=== PATIENT | male | born 1960 | race Caucasian/White ===

== ENCOUNTER 2017-05-29 11:19 | Emergency (ER) | payer SELFPAY ==
--- NOTE | 2017-05-29 12:17 | Cat Scan Report ---
Without IV contrast: History: Headache. Findings: There is aneurysm noted at the origin and proximal aspect of the right middle cerebral artery measuring 1.4 cm in length and 0.6 cm in width. There is subarachnoid and intraparenchymal hemorrhage noted in the frontal lobe with subarachnoid hemorrhage in the temporal lobes. There is also focal parenchymal hemorrhage noted adjacent to the interhemispheric fissure on the left side. No evidence of subdural hematoma. No evidence of acute ischemia. Mucosal edema of the ethmoid sinuses. Normal mastoid air cells. 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 Dr. Mayberry was informed of the findings at 12:10 PM on 05/29/17. CodePurple. Additional findings as detailed above.
[2017-05-29] MEDS ORDERED: KEPPRA 1,000 MG/NS 0.75% 100ML 1,000 MG/100 ML BAG IV ONE (12:35)
[2017-05-29] MEDS ORDERED: ATIVAN IV ONE (12:42)
[2017-05-29] MEDS ORDERED: ATIVAN ONE (12:46)
--- NOTE | 2017-05-29 12:49 | Emergency Department Report ---
ED Headache HPI - General Chief Complaint: Syncope Stated Complaint: SYNCOPE Time Seen by Provider: 05/29/17 11:48 - History of Present Illness Initial Comments: The patient is a 56-year-old male with an acute onset of headache he states 45 minutes prior to arrival. He was actually found at work down after a syncopal episode. He does not recall this event. [facility] is persistently disoriented. He states he is in very at up. He does note now that he is in emergency department. He follows commands and can't speak coherently. He states he has had headaches that were significant in the past but has not sought out medical attention. He is not taking any current medications nor on any anticoagulants. He states he has mild to moderate headache at this time. He reports no injury. He does not complain of neck pain. Timing/Duration: 1/2 hour, 1 hour Quality: moderate Head Injury Location: frontal Recent Head Trauma: chronic headaches Associated Symptoms: denies symptoms Allergies/Adverse Reactions: Allergies No Known Allergies Allergy (Unverified 05/29/17 11:33) ED Review of Systems ROS: Stated complaint: SYNCOPE Other details as noted in HPI Comment: All other systems reviewed and negative ED Past Medical Hx - Past Medical History Previous Medical History?: Yes Hx Hypertension: Yes - Surgical History Past Surgical History?: Yes Hx Appendectomy: Yes - Social History Smoking Status: Current Every Day Smoker Substance Use Type: Alcohol ED Physical Exam - General Limitations: Altered Mental Status General appearance: alert, in no apparent distress - Head Head exam: Present: atraumatic, normocephalic - Eye Eye exam: Present: normal appearance, PERRL, EOMI. Absent: scleral icterus - ENT ENT exam: Present: normal exam, mucous membranes moist - Neck Neck exam: Present: normal inspection. Absent: tenderness, meningismus - Respiratory Respiratory exam: Present: normal lung sounds bilaterally. Absent: respiratory distress - Cardiovascular Cardiovascular Exam: Present: regular rate, normal rhythm. Absent: systolic murmur, diastolic murmur, rubs, gallop - GI/Abdominal GI/Abdominal exam: Present: soft, normal bowel sounds. Absent: distended, tenderness, guarding, rebound - Rectal Rectal exam: Present: deferred - Extremities Exam Extremities exam: Present: normal inspection - Back Exam Back exam: Present: normal inspection - Neurological Exam Neurological exam: Present: CN II-XII intact, other (plantars are upgoing). Absent: oriented X3, motor sensory deficit - Psychiatric Psychiatric exam: Present: normal mood, flat affect - Skin Skin exam: Present: warm, dry, intact, normal color. Absent: rash ED Course Vital Signs 05/29/17 11:33 Temperature 98.2 F Pulse Rate 105 H Respiratory 14 Rate Blood Pressure 129/69 O2 Sat by Pulse 95 Oximetry - Reevaluation(s) Reevaluation #1: Patient is generally neurologically intact and follows commands. However his orientation is off at least respect to place. He does have a headache. He would be considered hot and has class III with his current subarachnoid hemorrhage and apparent right MCA aneurysm. His GCS score would be 14 out of 15 losing a point for confusion/disorientation. Otherwise he does know he is in the hospital and seems to understand the context generally. The patient was immediately sent to CT where upon the radiologist Dr. Hernandez read the scan on a very timely basis. He immediately reported to be a right MCA aneurysm which he stated was proximal 1.40.6 and dementia with frontotemporal subarachnoid blood and small intraparenchymal hemorrhage. There is no subdural collection. I spoke with Dr. Keating neurosurgeon at every. He agreed with the provision of Amicar 5 g IV loading dose. Probably we will not have time to begin a trip. I have already made arrangements for helicopter transport. I believe there are any in route at this time. In additionally I have given the patient 1 g of Keppra prophylactically. The nurse just informed me that the patient was getting a bit agitated. I have given him 1 mg of Ativan. He do not want to cloud his neurological status. However agitation will not be beneficial especially with his upcoming ear transport. He will be closely monitored. 05/29/17 12:50 ED Medical Decision Making - EKG Data -: EKG Interpreted by Me EKG shows normal: sinus rhythm, axis, intervals, QRS complexes, ST-T waves Rate: normal - EKG Data Interpretation: normal EKG - Radiology Data Radiology results: report reviewed Critical Care Time: Yes Critical care time in (mins) excluding proc time.: 45 Critical care attestation.: If time is entered above; I have spent that time in minutes in the direct care of this critically ill patient, excluding procedure time. ED Disposition Clinical Impression: Cerebral aneurysm rupture, Subarachnoid hemorrhage Disposition: DC/TX-70 ANOTHER TYPE [facility] Is pt being admited?: No Does the pt Need Aspirin: No Condition: Stable Referrals: PRIMARY CARE, [Primary Care Provider] - 3-5 Days
[2017-05-29 12:56] VITALS: BP 138/73
[2017-05-29] MEDS ORDERED: AMICAR 5,000 MG in NACL 0.9% 100 ML IV ONE (13:00)
[2017-05-29 13:28] LABS: INR 0.92 (0.87-1.13)
[2017-05-29 13:31] LABS: Urine Drugs of Abuse Note Disclamer
[2017-05-29 13:41] LABS: Basophils % (Auto) 0.8 % (0.0-1.8); Eosinophils % (Auto) 2.1 % (0.0-4.3); Hematocrit 43.8 % (35.5-45.6); Hemoglobin 14.6 gm/dl (11.8-15.2); Mean Corpuscular HGB Conc 33 % (32-34); Mean Corpuscular Hemoglobin 29 pg (28-32); Mean Corpuscular Volume 85 fl (84-94); Red Blood Count 5.13 M/mm3 (3.65-5.03); Red Cell Distribution Width 15.4 % (13.2-15.2); White Blood Count 9.7 K/mm3 (4.5-11.0)
[2017-05-29 13:44] LABS: Bacteria,Urine 1+ /HPF (Negative); Bilirubin,Urine NEG (Negative); Blood,Urine SM (Negative); Ketones,Urine NEG (Negative); Leukocyte Esterase,Urine NEG (Negative); Nitrite,Urine NEG (Negative); Protein,Urine <15 mg/dL mg/dL (Negative); Urobilinogen,Urine < 2.0 mg/dL (<2.0)
[2017-05-29 13:44] LABS: Alanine Aminotransferase 9 units/L (7-56); Albumin 4.4 g/dL (3.9-5); Albumin/Globulin Ratio 1.1 %; Alkaline Phosphatase 89 units/L (35-129); Anion Gap 18 mmol/L; Blood Urea Nitrogen 15 mg/dL (9-20); Calcium 9.4 mg/dL (8.4-10.2); Carbon Dioxide 25 mmol/L (22-30); Chloride 99.8 mmol/L (98-107); Glucose 101 mg/dL (75-100); Potassium 4.4 mmol/L (3.6-5.0); Sodium 138 mmol/L (137-145); Total Protein 8.4 g/dL (6.3-8.2)
[2017-05-29 14:12] LABS: Platelet Count 225 K/mm3 (140-440)
== END 2017-05-29 13:00 | disposition other institution (70) ==
LOC: ED 11:19
DX: I60.7 Nontraumatic subarachnoid hemorrhage from unspecified intracranial artery (principal); I10 Essential (primary) hypertension; F17.200 Nicotine dependence, unspecified, uncomplicated
CPT/HCPCS: 36415; 70450; 80053; 80307; 81001; 82140; 82962; 83735; 84443; 85025; 85610; 85730; 93005; 93010; 96365; 96375; 99291; G0480; J1953; J2060; 80320